=== PATIENT | female | born 1935 | race Native Hawaiian/Other Pacific Islander ===

== ENCOUNTER 2018-11-05 10:21 | Emergency (ER) | payer MEDICARE, MEDICAID ==
[~2018-11-05] VITALS: Ht 149.9 cm; Wt 49.9 kg
--- NOTE | 2018-11-05 10:29 | NUR ---
PT AND DAUGHTER UNABLE TO PROVIDED THE NAME OF THE BP MEDICINE THAT THE PT IS TAKING.
[2018-11-05] MEDS ORDERED: HYDR12.55 PO (10:35)
[2018-11-05 10:45] LABS: BASOPHILS # (AUTO) 0.1 K/uL (0.0-8.0); BASOPHILS % (AUTO) 0.5 % (0.0-2.0); EOSINOPHILS # (AUTO) 0.1 K/uL (0.0-0.7); EOSINOPHILS % (AUTO) 0.6 % (0.0-7.0); HEMATOCRIT 36.9 % (31.2-41.9); HEMOGLOBIN 12.1 g/dL (10.9-14.3); LYMPHOCYTES # (AUTO) 0.8 K/uL (20.0-40.0); LYMPHOCYTES % (AUTO) 6.5 % (20.5-51.5); MEAN CORPUSCULAR HEMOGLOBIN 28.8 uug (24.7-32.8); MEAN CORPUSCULAR HGB CONC 33 g/dL (32.3-35.6); MEAN CORPUSCULAR VOLUME 87.4 fL (75.5-95.3); MONOCYTES # (AUTO) 0.7 K/uL (2.0-10.0); NEUTROPHILS # (AUTO) 11.3 K/uL (1.8-8.9); NEUTROPHILS % (AUTO) 87.4 % (38.5-71.5); PLATELET COUNT (AUTO) 199 K/uL (179-408); RED BLOOD CELL COUNT(AUTO) 4.22 MIL/uL (3.63-4.92); WHITE BLOOD COUNT (AUTO) 12.9 K/uL (3.8-11.8)
--- NOTE | 2018-11-05 10:50 | NUR ---
PATIENT WAS SEEN BY MD. XRAYS DONE, LABS DRAWN, 12 LEAD EKG DONE. PATIENT IS AWAKE AND ALERT. SHE HAS A COUGH. SP02 >98% ON RA. DAUGHTER AT BEDSIDE.
[2018-11-05 10:52] LABS: CARBON DIOXIDE 32 mmol/L (21-32); CHLORIDE 97 mmol/L (98-107); CREATININE 0.8 mg/dL (0.6-1.3); GLUCOSE 141 mg/dL (74-106); POTASSIUM 3.2 mmol/L (3.5-5.1); UREA NITROGEN, BLOOD 28 mg/dL (7-18)
[2018-11-05 10:57] LABS: ALANINE AMINOTRANSFERASE 21 U/L (14-59); ALKALINE PHOSPHATASE 83 U/L (50-136); ASPARTATE AMINOTRANSFERASE 16 U/L (15-37); BILIRUBIN,DIRECT 0.2 mg/dL (0.0-0.2); BILIRUBIN,TOTAL 0.6 mg/dL (0.2-1.0); TOTAL PROTEIN, SERUM 7.4 g/dL (6.4-8.2)
--- NOTE | 2018-11-05 11:15 | NUR ---
DAUGHTER GAVE ME THE NAME OF THE ONE MEDICATION THAT PATIENT TAKES... ENTERED INTO CAHRT.
[2018-11-05] MEDS ORDERED: POTASSIUM CHLORIDE 20 MEQ TAB.PRT.SR ONE (11:33)
[2018-11-05] MEDS: POTASSIUM CHLORIDE 20 MEQ TAB.PRT.SR PO ONE (11:38)
--- NOTE | 2018-11-05 11:39 | NUR ---
MEDICATION GIVEN ORDERED. PATIENT IS AMBULATORY WITH STEADY GAIT. COPIES OF LABS AND CXRAY REPORT GIVEN TO GERHARD. DC, RX AND FOLLOW UP INSTRUCTIONS GIVEN AND EXPLAINED TO DAUGHTER WHO STATES SHE UNDERSTANDS ALL INSTRUCTIONS. PT TO START LEVAQUIN PO PURNIMA STATED BY HER DAUGHTER ( SOON SHE FILLS RX).
== END 2018-11-05 11:42 | disposition home or self-care (01) ==
LOC: ER 10:21
DX: J18.9 Pneumonia, unspecified organism (principal); E87.6 Hypokalemia; M25.561 Pain in right knee; M25.562 Pain in left knee; Z79.899 Other long term (current) drug therapy
CPT/HCPCS: 36415; 71045; 83605; 85025; 87040; 93005; A4663

== ENCOUNTER 2019-01-16 19:04 | Emergency (ER) | payer MEDICARE, MEDICAID ==
[~2019-01-16] VITALS: Ht 154.9 cm; Wt 55.3 kg
[~2019-01-16 19:04] MED LIST: HYDR12.55 PO
--- NOTE | 2019-01-16 19:21 | NUR ---
Dr. Marin at bedside for MSE.
[2019-01-16] MEDS ORDERED: CALC-860 PO (19:26)
[2019-01-16] MEDS ORDERED: OMEG-15 PO (19:26)
[2019-01-16] MEDS ORDERED: MULT1TAB73 PO (19:26)
[2019-01-16] MEDS ORDERED: PRIMROSE OIL (19:26)
[2019-01-16] MEDS ORDERED: ACETAMINOPHEN ES 500 MG TABLET PO ONE (19:30)
[2019-01-16] MEDS ORDERED: ACETAMINOPHEN ES 500 MG TABLET ONE (19:30)
--- NOTE | 2019-01-16 19:30 | NUR ---
Xray at bedside.
--- NOTE | 2019-01-16 19:52 | NUR ---
Call placed to [facility] Nephrology, Sheree Burrows has been paged.
--- NOTE | 2019-01-16 20:01 | NUR ---
Called [facility] for pt transport back to [facility]. ETA [id number] , trip#[id number]
--- NOTE | 2019-01-16 20:25 | NUR ---
Patient discharged to home in stable conditon. Written and verbal after care instructions given to daughter. Daughter verbalizes understanding of instructions. Daughter states she will drive the patient home via private vehicle. Pt out of ER via wheelchair, on shoulder immobilizer, CMS intact, provided with a cd and results of xray, no acute signs of distresss, VSS, all belongings taken.
[2019-01-16 20:32] VITALS: BP 145/94
== END 2019-01-16 20:32 | disposition home or self-care (01) ==
LOC: ER 19:07
DX: M25.511 Pain in right shoulder (principal); Z79.899 Other long term (current) drug therapy; W22.8XXA Striking against or struck by other objects, initial encounter; Y93.89 Activity, other specified; Y92.89 Other specified places as the place of occurrence of the external cause; Y99.8 Other external cause status
CPT/HCPCS: 73020; 73060; A4663; A9150

== ENCOUNTER 2019-02-16 09:50 | Emergency (ER) | payer MEDICARE, MEDICAID ==
[~2019-02-16] VITALS: Ht 154.9 cm; Wt 53.1 kg
[~2019-02-16 09:50] MED LIST changes: +CALC-860 PO; +MULT1TAB73 PO; +OMEG-15 PO; +PRIMROSE OIL
[2019-02-16] MEDS ORDERED: VALS80TA2 PO (10:05)
[2019-02-16] MEDS ORDERED: AZITHROMYCIN 250 MG TABLET ONE (11:30)
[2019-02-16] MEDS ORDERED: AZITHROMYCIN 250 MG TABLET PO ONE (11:30)
--- NOTE | 2019-02-16 11:41 | NUR ---
Patient discharged to home in stable conditon. Written and verbal after care instructions given. Patient and pt's daughter verbalizes understanding of instructions. Pt left Er accompained by daughter.
[2019-02-16 11:43] VITALS: BP 117/70
== END 2019-02-16 11:44 | disposition home or self-care (01) ==
LOC: ER 09:50
DX: J20.9 Acute bronchitis, unspecified (principal); Z79.899 Other long term (current) drug therapy
CPT/HCPCS: 71045; A4663; Q0144

== ENCOUNTER 2019-05-14 11:57 | Emergency (ER) | payer MEDICARE, MEDICAID ==
[~2019-05-14] VITALS: Ht 154.9 cm; Wt 52.2 kg
[~2019-05-14 11:57] MED LIST changes: -PRIMROSE OIL; +PRIMROSE OIL PO; +VALS80TA2 PO
[2019-05-14 12:38] LABS: BASOPHILS % (AUTO) 0.5 % (0.0-2.0); EOSINOPHILS # (AUTO) 0.3 K/uL (0.0-0.7); EOSINOPHILS % (AUTO) 3.9 % (0.0-7.0); HEMATOCRIT 37.4 % (31.2-41.9); HEMOGLOBIN 12.1 g/dL (10.9-14.3); LYMPHOCYTES # (AUTO) 1.1 K/uL (20.0-40.0); LYMPHOCYTES % (AUTO) 14.6 % (20.5-51.5); MEAN CORPUSCULAR HEMOGLOBIN 29.3 uug (24.7-32.8); MEAN CORPUSCULAR HGB CONC 32 g/dL (32.3-35.6); MEAN CORPUSCULAR VOLUME 90.6 fL (75.5-95.3); MONOCYTES # (AUTO) 0.7 K/uL (2.0-10.0); MONOCYTES % (AUTO) 9.8 % (0.0-11.0); NEUTROPHILS # (AUTO) 5.4 K/uL (1.8-8.9); NEUTROPHILS % (AUTO) 71.2 % (38.5-71.5); PLATELET COUNT (AUTO) 186 K/uL (179-408); RED BLOOD CELL COUNT(AUTO) 4.12 MIL/uL (3.63-4.92); WHITE BLOOD COUNT (AUTO) 7.6 K/uL (3.8-11.8)
[2019-05-14 12:45] LABS: CARBON DIOXIDE 28 mmol/L (21-32); CHLORIDE 102 mmol/L (98-107); CREATININE 0.7 mg/dL (0.6-1.3); GLUCOSE 93 mg/dL (74-106); UREA NITROGEN, BLOOD 24 mg/dL (7-18)
[2019-05-14 12:57] LABS: ALANINE AMINOTRANSFERASE 25 U/L (14-59); ALKALINE PHOSPHATASE 77 U/L (50-136); ASPARTATE AMINOTRANSFERASE 24 U/L (15-37); BILIRUBIN,DIRECT 0.1 mg/dL (0.0-0.2); BILIRUBIN,TOTAL 0.4 mg/dL (0.2-1.0); TOTAL PROTEIN, SERUM 7.1 g/dL (6.4-8.2)
--- NOTE | 2019-05-14 14:56 | NUR ---
Patient discharged to home in stable conditon. Written and verbal after care instructions given. Patient verbalizes understanding of instructions.
--- NOTE | 2019-05-14 14:56 | NUR ---
IV removed. Catheter intact and site benign. Pressure and 4x4 gauze applied to site. No bleeding noted.
== END 2019-05-14 15:00 | disposition home or self-care (01) ==
LOC: ER 11:57
DX: J18.9 Pneumonia, unspecified organism (principal); Z79.899 Other long term (current) drug therapy
CPT/HCPCS: 36415; 70030-TC; 71045; 83605; 85025; 85730; 87040; 93005; A4663

== ENCOUNTER 2019-07-03 20:42 | Emergency (ER) | payer MEDICARE, MEDICAID ==
[~2019-07-03] VITALS: Ht 157.5 cm; Wt 59.9 kg
[~2019-07-03 20:42] MED LIST changes: -HYDR12.55 PO
--- NOTE | 2019-07-03 20:51 | NUR ---
patient brought in by ambulance, rescue [id number]. Per report, EMT is from [facility] and was brought in by uniwtinessed mechanical fall. Patient DPOA inistsed patient come and to be seen. Upon arrival patient denies any pain/discomfort at this time.
--- NOTE | 2019-07-03 20:53 | NUR ---
Dr. Tirado at bedside for evaluation
[2019-07-03 21:10] LABS: BASOPHILS # (AUTO) 0.1 K/uL (0.0-8.0); BASOPHILS % (AUTO) 0.7 % (0.0-2.0); EOSINOPHILS # (AUTO) 0.2 K/uL (0.0-0.7); EOSINOPHILS % (AUTO) 2.3 % (0.0-7.0); HEMATOCRIT 39.7 % (31.2-41.9); HEMOGLOBIN 12.9 g/dL (10.9-14.3); LYMPHOCYTES # (AUTO) 1.2 K/uL (20.0-40.0); LYMPHOCYTES % (AUTO) 14.8 % (20.5-51.5); MEAN CORPUSCULAR HEMOGLOBIN 29.9 uug (24.7-32.8); MEAN CORPUSCULAR HGB CONC 33 g/dL (32.3-35.6); MEAN CORPUSCULAR VOLUME 91.7 fL (75.5-95.3); MONOCYTES # (AUTO) 0.7 K/uL (2.0-10.0); MONOCYTES % (AUTO) 8.9 % (0.0-11.0); NEUTROPHILS # (AUTO) 5.7 K/uL (1.8-8.9); NEUTROPHILS % (AUTO) 73.3 % (38.5-71.5); PLATELET COUNT (AUTO) 191 K/uL (179-408); RED BLOOD CELL COUNT(AUTO) 4.33 MIL/uL (3.63-4.92); WHITE BLOOD COUNT (AUTO) 7.8 K/uL (3.8-11.8)
--- NOTE | 2019-07-03 21:10 | NUR ---
x-ray audio technician at bedside.
[2019-07-03 21:16] LABS: CREATININE 0.7 mg/dL (0.6-1.3); POTASSIUM 4.1 mmol/L (3.5-5.1)
[2019-07-03 21:22] LABS: BILIRUBIN,DIRECT 0.1 mg/dL (0.0-0.2); BILIRUBIN,TOTAL 0.3 mg/dL (0.2-1.0); TOTAL PROTEIN, SERUM 7.5 g/dL (6.4-8.2)
[2019-07-03] MEDS ORDERED: TDAP DIPH,PERTUSS,TET VAC/PF 0.5 ML DISP.SYRIN IM ONE ×2 (23:08→23:15)
[2019-07-03] MEDS ORDERED: ACETAMINOPHEN 325 MG TABLET ONE (23:09)
[2019-07-03] MEDS ORDERED: ACETAMINOPHEN 325 MG TABLET PO ONE (23:15)
--- NOTE | 2019-07-03 23:24 | NUR ---
DPatient discharged to home in stable conditon. Written and verbal after care instructions given. Patient verbalizes understanding of instructions. patient taken home with daughter. Exit care package an personal belongings taken with family at discharge. patient daughter consent to follow plan of care and take patient home.
[2019-07-03 23:28] VITALS: BP 155/84
== END 2019-07-03 23:28 | disposition home or self-care (01) ==
LOC: ER 20:46
DX: S00.11XA Contusion of right eyelid and periocular area, initial encounter (principal); Z79.899 Other long term (current) drug therapy; W19.XXXA Unspecified fall, initial encounter; Y93.89 Activity, other specified; Y92.89 Other specified places as the place of occurrence of the external cause; Y99.8 Other external cause status
CPT/HCPCS: 36415; 70030-TC; 70450; 71045; 72170; 85025; 90715; 93005; A4663